=== PATIENT | female | born 1990 | race Hispanic/Latino ===

== ENCOUNTER 2018-12-20 11:57 | Emergency (ER) | payer MEDICAID ==
[2018-12-20] MEDS ORDERED: HALDOL IM PRN (12:38)
[2018-12-20] MEDS ORDERED: ATIVAN IM PRN (12:38)
--- NOTE | 2018-12-20 12:40 | Emergency Department Report ---
<JUANCARLOS CHATTERJEE - Last Filed: 12/21/18 14:36> ED General Adult HPI - General Chief complaint: Psych Stated complaint: MH Time Seen by Provider: 12/20/18 12:31 Source: patient, RN notes reviewed, old records reviewed Mode of arrival: Ambulatory Limitations: Altered Mental Status, Other (the patient is disorganized and a poor historian) - History of Present Illness Initial comments: This is a 28-year-old female. The patient is not known to this provider previously. The patient is reportedly brought to the hospital today by emergency medical services. Apparently she was wandering and inappropriate. The patient is initially nonverbal. She will nod yes no to certain questions. She scratches her legs quite a bit. She denies physical pain at this time. At some point during her history and physical, she began to speak to me. She was able to tell me her name. She was able to tell her that she is at a hospital. She does not know the month, she does not know the date. She states that she is not homicidal or suicidal. She states no intention to overdose. She denies hallucinations. She cannot tell me where she lives. She cannot tell me what medications she takes. She cannot tell me how she will get home. -: unknown Quality: other Consistency: other Improves with: other Worsens with: other - Related Data Allergies Allergy/AdvReac Type Severity Reaction Status Date / Time Unable to Assess Allergy Unverified 12/20/18 12:55 ED Review of Systems Constitutional: denies: fever Respiratory: denies: wheezing Cardiovascular: denies: syncope Gastrointestinal: denies: abdominal pain Genitourinary: denies: dysuria Musculoskeletal: denies: back pain Psychiatric: denies: homicidal thoughts, suicidal thoughts ED Past Medical Hx - Social History Smoking Status: Current Every Day Smoker Substance Use Type: None ED Physical Exam - General Limitations: Other (the patient is disorganized. The patient is a poor historian.) General appearance: alert, in no apparent distress - Head Head exam: Present: atraumatic, normocephalic - Eye Eye exam: Present: normal appearance, EOMI. Absent: nystagmus - ENT ENT exam: Present: normal exam, normal orophraynx, mucous membranes moist, normal external ear exam - Neck Neck exam: Present: normal inspection, full ROM. Absent: tenderness, meningismus - Respiratory Respiratory exam: Present: normal lung sounds bilaterally. Absent: respiratory distress - Cardiovascular Cardiovascular Exam: Present: normal rhythm, bradycardia, normal heart sounds. Absent: systolic murmur, diastolic murmur, rubs, gallop - GI/Abdominal GI/Abdominal exam: Present: soft. Absent: distended, tenderness, rigid, pulsatile mass - Extremities Exam Extremities exam: Present: normal inspection, full ROM, other (2+ pulses noted in the bilateral upper, lower extremities. There is no long bone tenderness. Musculoskeletal compartments are soft. The pelvis is stable.). Absent: pedal edema, calf tenderness - Back Exam Back exam: Present: normal inspection, full ROM. Absent: tenderness, CVA tenderness (R), CVA tenderness (L), paraspinal tenderness, vertebral tenderness - Neurological Exam Neurological exam: Present: alert, other (there is no facial droop. The tongue is midline. Extraocular movements are intact bilaterally. Patient speaking in full complete sentences. Shoulder shrug is intact bilaterally. Hearing is grossly intact bilaterally. Visual acuity intact to finger counting and color perception at a close distance. 5/5 strength 4 extremities. Sensation intact to light touch in 4 extremities.) - Psychiatric Psychiatric exam: Present: flat affect. Absent: homicidal ideation, suicidal ideation - Skin Skin exam: Present: warm, dry, intact, normal color. Absent: rash ED Course - Reevaluation(s) Reevaluation #1: 12/20/18 14:06 Differential diagnosis, including but not limited to: Disorganized behavior, mood disorder, medical clearance Assessment and plan: 28-year-old female who is a poor historian, moving 4 extremities, does not appear to be in any acute distress, has an unremarkable physical exam, she is not violent, she is not combative, she is not endorsed homicidality, suicidality, or intention to overdose. Screening laboratory studies are unremarkable. We will obtain psychiatry consult. She is disorganized, however, if her detention Recontacted in her baseline status is is unchanged from prior, it would be reasonable to send the patient back to her detention, if they can offer corroborating collateral information. However, if her detention cannot be contacted, or if this is a change in her functional status, I would consider it reasonable to place the patient on a 1013, for disorganized behavior and inability to care for self. We will await sd morrissey's recommendations. In addition, a nurse case manager consult has been requested to facilitate safe and proper disposition. Reevaluation #2: 12/20/18 14:30 Laboratory studies are reviewed and appreciated. They're unremarkable. The patient at this point time does not appear to have an emergent medical condition. Patient is medically suitable for discharge home, with a safe social situation can be corroborated and establish, otherwise, she is medically suitable for placement into a psychiatric facility, if the psychiatry team deems it necessary. Reevaluation #3: 12/21/18 13:[address] scan of the brain was requested by the psychiatry team, was found to be negative for acute disease. A 1013 was executed by the psychiatry team. ED Medical Decision Making - Lab Data Result diagrams: 12/20/18 12:54 12/20/18 12:54 Vital Signs 12/20/18 12/20/18 12:16 12:38 Temperature 97.7 F 97.7 F Pulse Rate 56 L 56 L Respiratory 18 18 Rate Blood Pressure 116/75 Blood Pressure 116/75 [Right] O2 Sat by Pulse 99 99 Oximetry Lab Results 12/20/18 12/20/18 12/20/18 Range/Units 12:38 12:54 12:54 WBC 5.8 (4.5-11.0) K/mm3 RBC 4.48 (3.65-5.03) M/mm3 Hgb 14.1 (10.1-14.3) gm/dl Hct 41.1 (30.3-42.9) % MCV 92 (79-97) fl MCH 32 (28-32) pg MCHC 34 (30-34) % RDW 13.5 (13.2-15.2) % Plt Count 224 (140-440) K/mm3 Sodium 140 (137-145) mmol/L Potassium 4.0 (3.6-5.0) mmol/L Chloride 105.3 (98-107) mmol/L Carbon Dioxide 23 (22-30) mmol/L Anion Gap 16 mmol/L BUN 4 L (7-17) mg/dL Creatinine 0.5 L (0.7-1.2) mg/dL Estimated GFR > 60 ml/min BUN/Creatinine Ratio 8 % Glucose 104 H (65-100) mg/dL Calcium 8.8 (8.4-10.2) mg/dL Total Bilirubin 0.50 (0.1-1.2) mg/dL AST 13 (5-40) units/L ALT 10 (7-56) units/L Alkaline Phosphatase 75 (35-129) units/L Total Creatine Kinase 65 (30-135) units/L Total Protein 7.3 (6.3-8.2) g/dL Albumin 4.2 (3.9-5) g/dL Albumin/Globulin Ratio 1.4 % Urine Color (Yellow) Urine Turbidity (Clear) Urine pH (5.0-7.0) Ur Specific [place] (1.003-1.030) Urine Protein (Negative) mg/dL Urine Glucose (UA) (Negative) mg/dL Urine Ketones (Negative) mg/dL Urine Blood (Negative) Urine Nitrite (Negative) Urine Bilirubin (Negative) Urine Urobilinogen (<2.0) mg/dL Ur Leukocyte Esterase (Negative) Urine WBC (Auto) (0.0-6.0) /HPF Urine RBC (Auto) (0.0-6.0) /HPF U Epithel Cells (Auto) (0-13.0) /HPF Urine Mucus /HPF Salicylates (2.8-20.0) mg/dL Urine Opiates Screen Presumptive negative Urine Methadone Screen Presumptive negative Acetaminophen (10.0-30.0) ug/mL Ur Barbiturates Screen Presumptive negative Phenytoin (10.0-20.0) ug/mL Valproic Acid (50-100) ug/mL Ur Phencyclidine Scrn Presumptive negative Ur Amphetamines Screen Presumptive negative U Benzodiazepines Scrn Presumptive negative [place] (0.0-1.2) mmol/L Urine Cocaine Screen Presumptive negative U Marijuana (THC) Screen Presumptive negative Drugs of Abuse Note Disclamer Plasma/Serum Alcohol (0-0.07) % 12/20/18 12/20/18 12/20/18 Range/Units 12:54 12:54 12:54 WBC (4.5-11.0) K/mm3 RBC (3.65-5.03) M/mm3 Hgb (10.1-14.3) gm/dl Hct (30.3-42.9) % MCV (79-97) fl MCH (28-32) pg MCHC (30-34) % RDW (13.2-15.2) % Plt Count (140-440) K/mm3 Sodium (137-145) mmol/L Potassium (3.6-5.0) mmol/L Chloride (98-107) mmol/L Carbon Dioxide (22-30) mmol/L Anion Gap mmol/L BUN (7-17) mg/dL Creatinine (0.7-1.2) mg/dL Estimated GFR ml/min BUN/Creatinine Ratio % Glucose (65-100) mg/dL Calcium (8.4-10.2) mg/dL Total Bilirubin (0.1-1.2) mg/dL AST (5-40) units/L ALT (7-56) units/L Alkaline Phosphatase (35-129) units/L Total Creatine Kinase (30-135) units/L Total Protein (6.3-8.2) g/dL Albumin (3.9-5) g/dL Albumin/Globulin Ratio % Urine Color (Yellow) Urine Turbidity (Clear) Urine pH (5.0-7.0) Ur Specific [place] (1.003-1.030) Urine Protein (Negative) mg/dL Urine Glucose (UA) (Negative) mg/dL Urine Ketones (Negative) mg/dL Urine Blood (Negative) Urine Nitrite (Negative) Urine Bilirubin (Negative) Urine Urobilinogen (<2.0) mg/dL Ur Leukocyte Esterase (Negative) Urine WBC (Auto) (0.0-6.0) /HPF Urine RBC (Auto) (0.0-6.0) /HPF U Epithel Cells (Auto) (0-13.0) /HPF Urine Mucus /HPF Salicylates < 0.3 L (2.8-20.0) mg/dL Urine Opiates Screen Urine Methadone Screen Acetaminophen < 5.0 L (10.0-30.0) ug/mL Ur Barbiturates Screen Phenytoin 1.2 L (10.0-20.0) ug/mL Valproic Acid < 2.8 L (50-100) ug/mL Ur Phencyclidine Scrn Ur Amphetamines Screen U Benzodiazepines Scrn [place] 0.1 (0.0-1.2) mmol/L Urine Cocaine Screen U Marijuana (THC) Screen Drugs of Abuse Note Plasma/Serum Alcohol < 0.01 (0-0.07) % 12/20/18 Range/Units Unknown WBC (4.5-11.0) K/mm3 RBC (3.65-5.03) M/mm3 Hgb (10.1-14.3) gm/dl Hct (30.3-42.9) % MCV (79-97) fl MCH (28-32) pg MCHC (30-34) % RDW (13.2-15.2) % Plt Count (140-440) K/mm3 Sodium (137-145) mmol/L Potassium (3.6-5.0) mmol/L Chloride (98-107) mmol/L Carbon Dioxide (22-30) mmol/L Anion Gap mmol/L BUN (7-17) mg/dL Creatinine (0.7-1.2) mg/dL Estimated GFR ml/min BUN/Creatinine Ratio % Glucose (65-100) mg/dL Calcium (8.4-10.2) mg/dL Total Bilirubin (0.1-1.2) mg/dL AST (5-40) units/L ALT (7-56) units/L Alkaline Phosphatase (35-129) units/L Total Creatine Kinase (30-135) units/L Total Protein (6.3-8.2) g/dL Albumin (3.9-5) g/dL Albumin/Globulin Ratio % Urine Color Yellow (Yellow) Urine Turbidity Hazy (Clear) Urine pH 6.0 (5.0-7.0) Ur Specific [place] 1.012 (1.003-1.030) Urine Protein <15 mg/dl (Negative) mg/dL Urine Glucose (UA) Neg (Negative) mg/dL Urine Ketones Neg (Negative) mg/dL Urine Blood Neg (Negative) Urine Nitrite Neg (Negative) Urine Bilirubin Neg (Negative) Urine Urobilinogen < 2.0 (<2.0) mg/dL Ur Leukocyte Esterase Lg (Negative) Urine WBC (Auto) 5.0 (0.0-6.0) /HPF Urine RBC (Auto) 2.0 (0.0-6.0) /HPF U Epithel Cells (Auto) 1.0 (0-13.0) /HPF Urine Mucus Few /HPF Salicylates (2.8-20.0) mg/dL Urine Opiates Screen Urine Methadone Screen Acetaminophen (10.0-30.0) ug/mL Ur Barbiturates Screen Phenytoin (10.0-20.0) ug/mL Valproic Acid (50-100) ug/mL Ur Phencyclidine Scrn Ur Amphetamines Screen U Benzodiazepines Scrn [place] (0.0-1.2) mmol/L Urine Cocaine Screen U Marijuana (THC) Screen Drugs of Abuse Note Plasma/Serum Alcohol (0-0.07) % ED Disposition Clinical Impression: Disorganized behavior, Acute psychosis Disposition: DC/TX-65 PSY HOSP/PSY UNIT Is pt being admited?: No Does the pt Need Aspirin: No Condition: Good Referrals: PRIMARY CAREMD [Primary Care Provider] - 3-5 Days <SIDNEY TYLER - Last Filed: 12/21/18 18:54> ED Review of Systems ROS: Stated complaint: MH Other details as noted in HPI ED Course Vital Signs 12/20/18 12/20/18 12/20/18 12:16 12:38 13:00 Temperature 97.7 F 97.7 F 98.0 F Pulse Rate 56 L 56 L 54 L Respiratory 18 18 20 Rate Blood Pressure 116/75 Blood Pressure 116/75 113/94 [Right] O2 Sat by Pulse 99 99 95 Oximetry 12/20/18 12/21/18 12/21/18 21:13 01:00 07:00 Temperature 98.3 F 98.0 F 98.1 F Pulse Rate 78 57 L 87 Respiratory 18 18 16 Rate Blood Pressure Blood Pressure 116/80 108/72 137/84 [Right] O2 Sat by Pulse 98 96 96 Oximetry 12/21/18 13:00 Temperature 98.0 F Pulse Rate 72 Respiratory 18 Rate Blood Pressure Blood Pressure 118/76 [Right] O2 Sat by Pulse 96 Oximetry - Reevaluation(s) Reevaluation #4: 12/21/18 18:53 Patient has been accepted to [facility] ED Medical Decision Making - Lab Data Result diagrams: 12/20/18 12:54 12/20/18 12:54 Critical care attestation.: If time is entered above; I have spent that time in minutes in the direct care of this critically ill patient, excluding procedure time. ED Disposition Is pt being admited?: No Does the pt Need Aspirin: No Time of Disposition: 18:54
[2018-12-20 13:12] LABS: Hematocrit 41.1 % (30.3-42.9); Hemoglobin 14.1 gm/dl (10.1-14.3); Mean Corpuscular HGB Conc 34 % (30-34); Mean Corpuscular Volume 92 fl (79-97); Platelet Count 224 K/mm3 (140-440); Red Blood Count 4.48 M/mm3 (3.65-5.03); Red Cell Distribution Width 13.5 % (13.2-15.2)
[2018-12-20 13:14] LABS: Bilirubin,Urine NEG (Negative); Blood,Urine NEG (Negative); Color,Urine Yellow (Yellow); Mucus,Urine FEW /HPF; Protein,Urine <15 mg/dL mg/dL (Negative); Urobilinogen,Urine < 2.0 mg/dL (<2.0)
[2018-12-20 13:18] LABS: Amphetamine Screen,Urine PRESUMPTIVE NEGATIVE; Benzodiazepines Screen,Urine PRESUMPTIVE NEGATIVE; Cannabinoid Screen,Urine PRESUMPTIVE NEGATIVE; Cocaine Screen,Urine PRESUMPTIVE NEGATIVE; Methadone Screen,Urine PRESUMPTIVE NEGATIVE; Opiate Screen,Urine PRESUMPTIVE NEGATIVE
[2018-12-20 13:27] LABS: Alanine Aminotransferase 10 units/L (7-56); Albumin 4.2 g/dL (3.9-5); BUN/Creatinine Ratio 8; Blood Urea Nitrogen 4 mg/dL (7-17); Calcium 8.8 mg/dL (8.4-10.2); Hemolysis Index 5
[2018-12-20 14:15] LABS: HCG Qualitative,Urine Negative (Negative)
--- NOTE | 2018-12-21 09:01 | Consultation ---
History of Present Illness - Reason for Consult Consult date: 12/21/18 Reason for consult: Mental Health Evaluation Requesting physician: JUANCARLOS CHATTERJEE - Chief Complaint Chief complaint: "Not now Cesilia" - History of Present Psychiatric Illness 28 y.o. white female who presented to the ER for bizarre behavior. Today the patient was disorganized during the assessment. She would only speak to her hand saying, "Not now Cesilia" several times. Several attempts was made to engage the patient, but was unsuccessful. She appeared to be responding to some type of stimuli. Per the record, the patient was found wandering by EMS. Overall, the patient was a poor historian. Medications and Allergies Allergies Allergy/AdvReac Type Severity Reaction Status Date / Time Unable to Assess Allergy Unverified 12/20/18 12:55 Active Meds: Active Medications Haloperidol Lactate (Haldol) 5 mg IM Q6HR PRN PRN Reason: Agitation Lorazepam (Ativan) 2 mg IM Q4HR PRN PRN Reason: Agitation Past psychiatric history - Past Medical History Past Medical History: other (Possible hx of seizures) Past Surgical History: Other (Unable to obtain ) - past Psychiatric treatment and history psychiatric treatment history: Unable to obtain a psy hx and fam psy hx. - Social History Social history: other (Unable to obtain ) Mental Status Exam - Vital signs Last Vital Signs Temp 98.1 F 12/21/18 07:00 Pulse 87 12/21/18 07:00 Resp 16 12/21/18 07:00 BP 137/84 12/21/18 07:00 Pulse Ox 96 12/21/18 07:00 - Exam Narrative exam: MSE: Appearance: disheveled, malodorous Behavior: poor eye contact Speech: regular rate and tone Mood: preoccupied Affect: blunted Thought Process: disorganized when she communicate Thought Content: responding to some type of stimuli Motor Activity: lying in bed Cognition: alert Insight: unable to assess Judgment: unable to assess Results Result Diagrams: 12/20/18 12:54 12/20/18 12:54 Abnormal lab results 12/20/18 12/20/18 12/20/18 Range/Units 12:54 12:54 12:54 BUN 4 L (7-17) mg/dL Creatinine 0.5 L (0.7-1.2) mg/dL Glucose 104 H (65-100) mg/dL Salicylates < 0.3 L (2.8-20.0) mg/dL Acetaminophen < 5.0 L (10.0-30.0) ug/mL Phenytoin 1.2 L (10.0-20.0) ug/mL Valproic Acid < 2.8 L (50-100) ug/mL All other labs normal. Assessment and Plan Assessment and plan: Impression: Unspecified Psychosis. Today the patient was disorganized during the assessment. Phenytoin 1.2. DDx: Schizophrenia, Bipolar DO with psychosis, Possible Seizure DO Recommendations/Plan: Initiate 1013 and attempt to gather collateral information. Start Zyprexa 5 mg PO HS for psychosis. Attempted to discuss possible metabolic side effects from Zyprexa with the patient. Dipso: The patient will be referred to inpatient psy services. Will staff with Dr Zackary Walker.
--- NOTE | 2018-12-21 10:29 | Cat Scan Report ---
Head CT without intravenous contrast INDICATION: Altered mental status COMPARISON: None FINDINGS: The ventricles are normal in size and position. No hemorrhage or extra-axial fluid collecti on. No edema or mass effect. No focal infarct seen. Portions of the sinuses visualized are clear. No skull fracture identified. IMPRESSION: Negative head CT Automated exposure control was utilized to diminish radiation dose Signer Name: Renard Stout MD Signed: 12/21/2018 10:25 AM Workstation Name: [id number]
[2018-12-21] MEDS ORDERED: BUSPAR PO SCH (12:00)
[2018-12-21 21:03] VITALS: BP 100/70
== END 2018-12-21 20:25 ==
LOC: ED 11:57 → EEVIPCON 11:57 → ED 12-21 20:25
DX: R46.1 Bizarre personal appearance (principal); F17.200 Nicotine dependence, unspecified, uncomplicated
CPT/HCPCS: 36415; 70450; 80053; 80164; 80178; 80185; 80307; 80320; 81001; 81025; 82550; 85027; G0480

== ENCOUNTER 2020-04-15 11:32 | Emergency (ER) | payer MEDICAID ==
[2020-04-15 12:02] VITALS: BP 122/75
[2020-04-15] MEDS ORDERED: LIDOCAINE (1%) 10 MG/1 ML VIAL 20 ML MDV INFILTRATI ONE (15:36)
[2020-04-15] MEDS ORDERED: HYDROcodone/ACETAMINOPHEN 5-325 MG TAB PO ONE (15:36)
[2020-04-15] MEDS ORDERED: SULFAMETHOXAZOLE/TRIMETHOPRIM 800/160MG DS TAB PO ONE (15:37)
--- NOTE | 2020-04-15 15:47 | Emergency Department Report ---
- General Chief complaint: Skin/Abscess/Foreign Body Stated complaint: LT ARM POSSIBLE INFECTION Time Seen by Provider: 04/15/20 14:57 Source: patient, EMS Mode of arrival: Ambulatory Limitations: No Limitations - History of Present Illness Initial comments: 29-year-old female with a past medical history of bipolar disease, seizures, and asthma presents to the hospital planing of left axilla abscess x4 days. Increasing in size. No fever or drainage. Patient thinks she has received a tetanus in the last 10 years. Pain is moderate and worse to palpation - Related Data Previous Rx's Medication Instructions Recorded Last Taken Type Ibuprofen [Motrin] 800 mg PO Q8HR PRN #20 tablet 04/15/20 Unknown Rx Sulfamethoxazole/Trimethoprim 1 each PO BID #20 tablet 04/15/20 Unknown Rx [Bactrim DS TAB] Allergies Allergy/AdvReac Type Severity Reaction Status Date / Time butorphanol [From Stadol] Allergy Unknown Verified 04/15/20 12:00 chlorpromazine Allergy Unknown Verified 04/15/20 12:00 [From Thorazine] Abscess Boil HPI - HPI Chief Complaint: Skin/Abscess/Foreign Body Stated Complaint: LT ARM POSSIBLE INFECTION Time Seen by Provider: 04/15/20 14:57 Home Medications: Previous Rx's Medication Instructions Recorded Last Taken Type Ibuprofen [Motrin] 800 mg PO Q8HR PRN #20 tablet 04/15/20 Unknown Rx Sulfamethoxazole/Trimethoprim 1 each PO BID #20 tablet 04/15/20 Unknown Rx [Bactrim DS TAB] Allergies/Adverse Reactions: Allergies Allergy/AdvReac Type Severity Reaction Status Date / Time butorphanol [From Stadol] Allergy Unknown Verified 04/15/20 12:00 chlorpromazine Allergy Unknown Verified 04/15/20 12:00 [From Thorazine] ED Review of Systems ROS: Stated complaint: LT ARM POSSIBLE INFECTION Other details as noted in HPI Comment: All other systems reviewed and negative ED Past Medical Hx - Past Medical History Hx Seizures: Yes Hx Psychiatric Treatment: Yes (BIPOLAR) Hx Asthma: Yes Additional medical history: HUNTING DIESASE - Social History Smoking Status: Current Every Day Smoker Substance Use Type: None - Medications Home Medications: Home Medications Medication Instructions Recorded Confirmed Last Taken Type Ibuprofen [Motrin] 800 mg PO Q8HR PRN #20 tablet 04/15/20 Unknown Rx Sulfamethoxazole/Trimethoprim 1 each PO BID #20 tablet 04/15/20 Unknown Rx [Bactrim DS TAB] ED Physical Exam - General Limitations: No Limitations - Other Other exam information: General: No acute distress Head: Atraumatic Eyes: normal appearance ENT: Moist mucous membranes Neck: Normal appearance, no midline tenderness Chest: Clear to auscultation bilaterally CV: Regular rate and rhythm Abdomen: Soft, normal bowel sounds, nontender, nondistended, no rebound or guarding Back: Normal inspection Extremity: Normal inspection, full range of motion Neuro: Alert O x 3, no facial asymmetry, speech clear, no gross motor sensory d eficit. No tremor Psych: Appropriate behavior Skin: 2 2 cm raised areas of induration and redness at the left axilla that feels indurated ED Course Vital Signs 04/15/20 04/15/20 12:01 15:52 Temperature 98.1 F Pulse Rate 95 H Respiratory 16 20 Rate Blood Pressure 122/75 O2 Sat by Pulse 100 Oximetry ED Medical Decision Making - Medical Decision Making Patient patient has had early abscess with induration and erythema. Will be prescribed Bactrim and warm compresses. Patient may need I&D if area becomes more fluctuant patient did receive [place] and Bactrim in the ED. patient does not mention that she is here for alcohol treatment or suicidal thoughts at time of my evaluation. Patient is not exhibiting signs of alcohol withdrawal at time of my evaluation. Critical Care Time: No Critical care attestation.: If time is entered above; I have spent that time in minutes in the direct care of this critically ill patient, excluding procedure time. ED Disposition Clinical Impression: Abscess of left axilla, Cellulitis of left axilla Disposition: DC-01 TO HOME OR SELFCARE Is pt being admited?: No Does the pt Need Aspirin: No Condition: Stable Instructions: Skin Abscess, Cellulitis, Adult Additional Instructions: Take the medication as prescribed. Apply warm compresses several times a day. Follow-up with your doctor or doctor/clinic provided. Return if symptoms worsen as indicated by your discharge instructions. Prescriptions: Sulfamethoxazole/Trimethoprim [Bactrim DS TAB] 1 each PO BID #20 tablet Ibuprofen [Motrin] 800 mg PO Q8HR PRN #20 tablet PRN Reason: Pain , Severe (7-10) Referrals: PRIMARY CARE, [Primary Care Provider] - 3-5 Days [facility] [Provider Group] - 3-5 Days Time of Disposition: 16:15
== END 2020-04-15 16:28 | disposition home or self-care (01) ==
LOC: ED 11:32
DX: L02.412 Cutaneous abscess of left axilla (principal); Z20.828 Contact with and (suspected) exposure to other viral communicable diseases; F31.9 Bipolar disorder, unspecified; J45.909 Unspecified asthma, uncomplicated; F17.200 Nicotine dependence, unspecified, uncomplicated; Z79.899 Other long term (current) drug therapy; Z88.8 Allergy status to other drugs, medicaments and biological substances
CPT/HCPCS: 99283